=== PATIENT | female | born 1995 | race Hispanic/Latino ===

== ENCOUNTER 2020-11-06 19:17 | Emergency (ER) | payer OTHER ==
[~2020-11-06] VITALS: Ht 154.9 cm; Wt 60.5 kg
[2020-11-06] MEDS ORDERED: ZYRTEC (19:34)
[2020-11-06] MEDS ORDERED: PREN1CHW6 PO (19:34)
[2020-11-06] MEDS ORDERED: predniSONE 20 MG TAB PO ONE (20:20)
[2020-11-06 20:25] LABS: BASO % 0.2 % (0.0-1.0); EOS # 0.2 10^3/uL (0.0-0.5); EOS % 1.4 % (0.0-3.0); HEMATOCRIT 36.9 % (36.0-47.0); HEMOGLOBIN 13.2 g/dl (12.0-15.5); LYMPH # 2.8 10^3/uL (1.5-5.0); LYMPH % 17.8 % (24.0-44.0); MEAN CORPUSCULAR HEMOGLOBIN 33.8 pg (27.0-33.0); MEAN CORPUSCULAR HGB CONC 35.8 g/dl (32.0-36.5); MEAN CORPUSCULAR VOLUME 94.6 fl (80.0-96.0); MONO # 0.8 10^3/uL (0.0-0.8); NEUTROPHILS # 11.8 10^3/uL (1.5-8.5); NEUTROPHILS % 75.1 % (36.0-66.0); PLATELET COUNT, AUTOMATED 242 10^3/uL (150-450); WHITE BLOOD COUNT 15.7 10^3/uL (4.0-10.0)
[2020-11-06] MEDS: COMBIVENT RESPIMAT 100-20MCG INHALER 4GM INH SCH ×3 (20:40→21:18)
[2020-11-06 21:08] LABS: BLOOD UREA NITROGEN 9 MG/DL (7-18); CALCIUM LEVEL 9.4 MG/DL (8.5-10.1); CARBON DIOXIDE LEVEL 25 MEQ/L (21-32); CHLORIDE LEVEL 106 MEQ/L (98-107); CREATININE FOR GFR 0.44 MG/DL (0.55-1.30); GLOMERULAR FILTRATION RATE > 60.0 (>60); GLUCOSE, FASTING 66 MG/DL (70-100); POTASSIUM SERUM 3.8 MEQ/L (3.5-5.1); SODIUM LEVEL 138 MEQ/L (136-145)
[2020-11-06 22:04] LABS: FREE T4 0.81 NG/DL (0.76-1.46)
[2020-11-06] MEDS ORDERED: ALBU83IN INH (22:38)
[2020-11-06] MEDS ORDERED: PRED20TA PO (23:01)
[2020-11-06 23:12] VITALS: BP 122/56
--- NOTE | 2020-11-07 02:47 | ECGEPIP ---
[facility] - ED Test Date: 2020-11-06 Pat Name: MARTELL PEDRAZA Department: Room: - Gender: Female Direct Service Provider: : 1995 Requested By: Walt Tapia Order Number: [id number] Reading MD: Walt Seymour Measurements Intervals [place] Rate: 76 P: 71 WV: 134 QRS: 67 QRSD: 70 T: 31 QT: 382 QTc: 429 Interpretive Statements Normal sinus rhythm with sinus arrhythmia POOR R WAVE PROGRESSION NONSPECIFIC T WAVE ABNORMALITY(S) NO PRIORS FOR COMPARISON Electronically Signed on 11-07-2020 2:46:48 EDT by Walt Seymour
== END 2020-11-06 23:15 | disposition home or self-care (01) ==
LOC: M ED 19:17
DX: O99.512 Diseases of the respiratory system complicating pregnancy, second trimester (principal); J45.909 Unspecified asthma, uncomplicated; Z79.51 Long term (current) use of inhaled steroids; Z79.899 Other long term (current) drug therapy; Z3A.20 20 weeks gestation of pregnancy
CPT/HCPCS: 36415; 80048; 82803; 84439; 84443; 85025; 87798; 93005; 94640; 99284; J7512

== ENCOUNTER 2021-01-10 15:51 | Outpatient (CLI) | payer OTHER ==
[~2021-01-10] VITALS: Ht 154.9 cm; Wt 63.6 kg
[~2021-01-10 15:51] MED LIST: ALBU83IN INH; PRED20TA PO; PREN1CHW6 PO; ZYRTEC
[2021-01-10 16:17] VITALS: BP 122/75
--- NOTE | 2021-01-10 17:26 | REP ---
INDICATION: unable to detect heart. COMPARISON: A prior not available on an emergent basis.. TECHNIQUE: Transabdominal images FINDINGS: Sonographic evaluation shows a single intrauterine gestation in cephalic presentation. There is an anterior grade 1 placenta without previa or abruption. The amniotic fluid volume is visually normal with an index of 18.1. However there is no heart activity or cardiac motion identified. There is no color flow in the umbilical cord color imaging or Doppler. There is edema of skin noted around the head and abdomen with a pericardial effusion also noted. Cervix is 3.5 cm long and closed. biometry BPD 6.7 cm 27 weeks 1 day HC 26.8 cm 29 weeks 1 day AC 25.7 cm 29 weeks 6 days FL 5.1 cm 27 weeks 3 days HL 4.6 cm 27 weeks 2 days. Average ultrasound age 28 weeks 1 day by composite ultrasound criteria, EDC 04/03/2021 Measurement ratios: BPD < 5% HC 45% AC 60% FL 6% HL 14% EFW 1283 g or 2 lb 13 oz, 42 percentile for dating based on LMP By LMP 29 weeks 3 days with EDC 03/25/2021 No anatomy screen is performed. Visualized structures other than described above were unremarkable IMPRESSION: 1. Intrauterine demise confirmed at size 28 weeks 1 day by composite ultrasound age. By LMP she is 29 weeks 3 days with EDC 03/25/2021. Anterior grade 1 placenta, normal JIM and closed 3.5 cm cervix. pericardial effusion and edema about the subcutaneous head and abdomen. <Electronically signed by Shlomo Bridges > 01/10/21 [id number]
--- NOTE | 2021-01-10 18:44 | IPNPDOC ---
Text Note Date of Service The patient was seen on 01/10/21. NOTE Vital Signs Label Value Date Time Patient Temperature 98.4 degrees F 01/10/21 1617 Temperature Source Temporal 01/10/21 1617 Pulse 99 01/10/21 1617 Respiratory Rate 16 bpm 01/10/21 1617 Blood Pressure Assessment 122/75 (91) 01/10/21 1617 Source Automatic Cuff (NIBP) 01/10/2021 25 yo EDC 03/25/21 AT 29.3 WEEKS SEEN IN TRIAGE FOR DECREASED MOVEMENT X 48 HOURS. PATIENT OF CENTER. LAST SEEN THERE 12/31/20 ALL WAS WELL HAS FOLLOW UP APPOINTMENT . INITIAL US 10/01/20 EDC 03/25/21. AT 15 WEEKS .O DAYS. PAST HISTORY 2018 PRE TERM 35 WEEKS 2.75 KG MALE PLAN WAS TO CONTINUE CARE AND DELIVERY AT [facility] WITH MULTIPLE SPECIALITIES INVOLVED . CAME TO L AND D FOR DECREASED MOVEMENT. REVIEWED US DEMONSTRATED NO CARDIAC ACTIVITY VERTEX PRESENTATION AND HEADDEFORMITY DUE TO PROLONGED . DISCUSSED CASE WITH MICHELLE. PATIENT WILL SCHEDULE IOL WEDNESDAY AT [facility]. PRECAUTIONS GIVEN RE [facility] BLEEDING RETURN TO [facility] FOR ONGOING CARE. PATIENT EXPRESSED UNDERSTANDING DISCHARGED UNDELIVERED NAME: MARTELL PEDRAZA DATE OF : 1995 AGE: 25 SEX: F REPORT #: [id number] ROOM: [facility] TECHNOLOGIST: [facility] DOCTOR: Cameron Russo MD Ordered for Date&Time: 01/10/21 1625 cc: [~ rep ct ivnm] Service Date&Time: 01/10/21 1703 EXAMINATION REQUESTED: US OBS SINGEL GEST REASON FOR PATIENT VISIT: DECREASE MOVEMENT REASON FOR EXAM/COMMENT: unable to detect heart INDICATION: unable to detect heart. COMPARISON: A prior not available on an emergent basis.. TECHNIQUE: Transabdominal images FINDINGS: Sonographic evaluation shows a single intrauterine gestation in cephalic presentation. There is an anterior grade 1 placenta without previa or abruption. The amniotic fluid volume is visually normal with an index of 18.1. However there is no heart activity or cardiac motion identified. There is no color flow in the umbilical cord color imaging or Doppler. There is edema of skin noted around the head and abdomen with a pericardial effusion also noted. Cervix is 3.5 cm long and closed. biometry BPD 6.7 cm 27 weeks 1 day HC 26.8 cm 29 weeks 1 day AC 25.7 cm 29 weeks 6 days FL 5.1 cm 27 weeks 3 days HL 4.6 cm 27 weeks 2 days. Average ultrasound age 28 weeks 1 day by composite ultrasound criteria, EDC 04/03/2021 Measurement ratios: BPD < 5% HC 45% AC 60% FL 6% HL 14% EFW 1283 g or 2 lb 13 oz, 42 percentile for dating based on LMP By LMP 29 weeks 3 days with EDC 03/25/2021 No anatomy screen is performed. Visualized structures other than described above were unremarkable IMPRESSION: 1. Intrauterine demise confirmed at size 28 weeks 1 day by composite ultrasound age. By LMP she is 29 weeks 3 days with EDC 03/25/2021. Anterior grade 1 placenta, normal JIM and closed 3.5 cm cervix. pericardial effusion and edema about the subcutaneous head and abdomen. Cameron Russo MD Jan 10, 2021 18:40
== END 2021-01-10 18:05 | disposition home or self-care (01) ==
LOC: M LDO 15:51
PROVIDERS: ATTEND Obstetrics & Gynecology
DX: O36.4XX0 Maternal care for intrauterine death, not applicable or unspecified (principal); O36.8130 Decreased fetal movements, third trimester, not applicable or unspecified; Z3A.29 29 weeks gestation of pregnancy
CPT/HCPCS: 76811; 76815; G0378; G0463